=== PATIENT | female | born 1985 | race Caucasian/White ===

== ENCOUNTER 2024-03-07 12:08 | Emergency (ER) | payer OTHER, SELFPAY ==
--- NOTE | 2024-03-07 12:21 | ED_ITS ---
HPI - Overdose General Chief Complaint: Overdose Stated Complaint: OVERDOSE, 0.4 IV NARCAN GIVEN PER EMS Time Seen by Provider: 03/07/24 12:12 Source: patient, EMS and old records reviewed Mode of arrival: EMS Limitations: no limitations History of Present Illness HPI Narrative: 38 yo female admits to sniffing heroin and was found asleep in her car at this time patient is awake and alert to verbal and tactile stimuli but nods off she was given 1mg narcan with EMS. Denies SI. No signs of head trauma. MD complaint: accidental overdose Onset (ago): unknown Context: Accidental Overdose: wanted to get high Treatments Prior to Arrival: narcan (1mg intranasal) Related Data Home Medications ?Medication ?Instructions ?Recorded ?Confirmed Lactobacillus acidophilus 100 mg 100 mg PO BID 09/18/22 (1 billion cell) capsule alprazolam 2 mg tablet 2 mg PO BEDTIME 09/18/22 bupropion HCl 300 mg 24 hr tablet, 300 mg PO QAM 09/18/22 extended release buspirone 15 mg tablet 15 mg PO ONCE 09/18/22 clonidine HCl 0.2 mg tablet 0.2 mg PO TID 09/18/22 cyclobenzaprine 10 mg tablet 10 mg PO TID 09/18/22 escitalopram oxalate 10 mg tablet 10 mg PO DAILY 09/18/22 gabapentin 800 mg tablet 800 mg PO .Q4HRS 09/18/22 hydroxyzine HCl 25 mg tablet 25 mg PO Q6-8H 09/18/22 megestrol 20 mg tablet 20 mg PO DAILY 09/18/22 methadone 10 mg tablet 10 mg PO Q4H 09/18/22 metoprolol succinate 25 mg 25 mg PO DAILY 09/18/22 tablet,extended release 24 hr omeprazole 40 mg capsule,delayed 40 mg PO DAILY 09/18/22 release ondansetron HCl 4 mg tablet 4 mg PO Q8H 09/18/22 quetiapine 100 mg tablet 100 mg PO DAILY 09/18/22 sumatriptan succinate 50 mg tablet 50 mg PO Q2-4H PRN 09/18/22 Allergies Allergy/AdvReac Type Severity Reaction Status Date / Time acetaminophen [From TYLENOL] Allergy Unknown SWELLING Verified 03/07/24 12:36 (THROAT) Review of Systems Review of Systems: Constitutional : No Fever, No Chills ENT/Mouth : No Ear Pain, No Nasal Congestion, No sore throat Eyes: No Eye Pain, No Swelling, No Redness Cardiovascular : No Chest Pain, No SOB Respiratory : No Cough, No Sputum, No Dyspnea Gastrointestinal : No Nausea, No Vomiting, No Diarrhea, No Hematochezia, No Melena Genitourinary : No Dysuria, No Urinary Frequency, No Hematuria Musculoskeletal : No Myalgias Skin : No Skin Lesions, No rash Neuro : No Weakness, No Numbness, No Paresthesias, No Dizziness, No Headache Psych : no Anxiety, no Depression, no SI/HI All other systems reviewed and are negative [facility] Past Medical History Attestation statement: The following information was validated with the patient. Medical History Anxiety Family History Family History (System 11/27/23 @ 15:26 by Stefanie Chaney) Paternal Grandmother Breast cancer Maternal Grandmother Colon cancer Social History Social History Alcohol intake: current Alcohol intake frequency: holidays/special occasions only Patient Tobacco Use Status: Current everyday Tobacco user Tobacco use type: Cigarette Advance Directives: No Advance Directives Information Provided: No Physical Exam Vital Signs: Vital Signs: Last Vital Signs Temp 97.9 F 03/07/24 15:49 Pulse 80 03/07/24 15:49 Resp 14 03/07/24 15:49 BP 96/51 L 03/07/24 15:49 Pulse Ox 96 03/07/24 15:49 O2 Del Method Room Air 03/07/24 15:49 BMI result Body Mass Index 21.0 Appearance: Somnolent but wakes to verbal and tactile stimuli. Oriented X3. No acute distress. Eyes: Pupils equal, round and reactive to light. ENT: Pharynx normal. atraumatic Neck: Normal inspection. Neck supple. CVS: Normal heart rate and rhythm. Pulses normal. Respiratory: No respiratory distress. Breath sounds normal. Abdomen: Soft and nontender. Skin: Skin warm and dry. Normal skin color. Normal skin turgor. Extremities: No lower extremity edema. No calf ttp Neuro: Oriented X 3. No motor deficit. No sensory deficit. Course Course Course Narrative: patient has a ride here and is already asking to leave 105pm will continue to monitor does not want SUDE evaluation Reevaluation(s) Reevaluation #1: no need for repeat narcan stable for DC Medications Administered Discontinued Medications Generic Name Dose Route Start Last Admin Trade Name Lenora PRN Reason Stop Dose Admin Naloxone HCl 8 mg 03/07/24 12:32 03/07/24 15:50 Naloxone Hcl Nasal Take Home 4 Mg [place] NOSTRILALT 03/07/24 12:33 8 mg ONCE ONE Administration Medical Decision Making Medical Decision Making MDM Narrative: 38 yo female with PMH of anxiety admitted to sniffing a bag of heroin today then was found asleep in her car woke up with [facility] noted she was fine until en route became very sleepy they had to give her 1mg narcan she arrives still sleepy but wakes up to voice and tactile stimuli. No SI. Will monitor closely. Differential Diagnosis Differential Diagnoses: The differential diagnosis associated with the presentation includes drug overdose Admission/Observation Consideration of admission/observation: Escalation of care including admission/observation considered observe until more awake Lab Data MDM Lab Attestation statement: I reviewed the patient's lab results. Independent Historian Clinical information obtained from an independent historian. History obtained from or confirmed by: EMS Prescription Management I considered prescription management with: Other Discharge Plan Discharge Clinical Impression: Drug overdose Patient Disposition: Home, Self-Care Instructions: Adult Overdose (ED) Additional Instructions: carry narcan with you at all times Prescriptions: No Action sumatriptan succinate 50 mg tablet 50 mg PO Q2-4H PRN Rx Instructions: do not exceed 4 doses per 24 hrs methadone 10 mg tablet 10 mg PO Q4H cyclobenzaprine 10 mg tablet 10 mg PO TID metoprolol succinate 25 mg tablet extended release 24 hr 25 mg PO DAILY omeprazole 40 mg capsule,delayed release(DR/EC) 40 mg PO DAILY clonidine HCl 0.2 mg tablet 0.2 mg PO TID hydroxyzine HCl 25 mg tablet 25 mg PO Q6-8H gabapentin 800 mg tablet 800 mg PO .Q4HRS megestrol 20 mg tablet 20 mg PO DAILY ondansetron HCl 4 mg tablet 4 mg PO Q8H escitalopram oxalate 10 mg tablet 10 mg PO DAILY buspirone 15 mg tablet 15 mg PO ONCE bupropion HCl 300 mg tablet extended release 24 hr 300 mg PO QAM alprazolam 2 mg tablet 2 mg PO BEDTIME quetiapine 100 mg tablet 100 mg PO DAILY Lactobacillus acidophilus 100 mg (1 billion cell) capsule 100 mg PO BID Interventions: ED Discharge Assessment Last Done: 03/07/24 15:49 Print Language: Libyan
[2024-03-07 12:32] VITALS: BP 108/60; BP 108/67; PULSE 102; PULSE 77; RESP 12; TEMP 37.1; O2SAT 100; O2SAT 97; BMI 21.0
--- NOTE | 2024-03-07 12:37 | PC.NURSE ---
castro ROTHMAN from [facility] where she was found nodding out of consiousness. 1mg IV narcan administered. being changed over [facility] security and PCT - belongings will go to [facility]
--- OUTSIDE RECORDS SUMMARY | 2024-03-07 13:17 | XMS_ITS | Continuity of Care Document ---
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 have other health problems or are taking other medicines. ??? You may use fjaa-zco-fjnwzkb medicines, such as acetaminophen, ibuprofen, or naproxen, to control pain, unless another pain medicine was prescribed. Talk with your provider before taking any medicines if you have a chronic condition, such as diabetes, liver orkidney disease, stomach ulcers, or digestive bleeding, or are taking blood-thinner medicines. ??? Be careful if you are given prescription medicines, such as opioids, or medicine for muscle spasm. They can cause drowsiness, and affect your coordination, reflexes, and judgment. Don't drive or operate heavy machinery when taking these types of medicines. Only take pain medicine as prescribed by your provider. ?? Follow-up care Follow up with your healthcare provider as advised. You may need physical therapy or more tests??ifyour symptoms get worse. If you had X-rays, your provider may be checking for any broken bones, breaks, or fractures. Bruises and sprains can sometimes hurt as much as a fracture. These injuries can take time to heal fully. If your symptoms don???t get better or they get worse, talk with your provider. You may need a repeat X-ray or other tests. ?? Call 911 Call 911 if any of these occur: ??? Trouble breathing ??? Confused ??? Very drowsy or trouble waking up ??? Fainting or loss of consciousness ??? Rapid or very slow heart rate ??? Loss of bowel or bladder control ??? Weakness or numbness in 1 or both arms or legs ??? Numbness in the groin or genital area ?? When to get medical advice Call your healthcare provider right away if this occurs: ??? Pain gets worse or spreads to your arms or legs ?? Last Reviewed Date: 2022 ?? [employer]. All rights reserved. This information is not intended as a substitute for professional medical care. Always follow your healthcare professional's instructions. ?? * Vandana Whitley DO: PERFORM Event Display: Patient Education Leaflets Authored Date: [id number] Neck Sprain or Strain ?? [id number] Neck Sprain or Strain A sudden force that causes turning or bending of the neck can cause a sprain or strain. An example would be the force from a car accident. This can stretch or tear muscles called a strain. It can also stretch or tear ligaments called a sprain. Either of these can cause neck pain. Sometimes neck pain occurs after a simple awkward movement. In either case, muscle spasm is commonly present and contributes to the pain.?? Unless you had a forceful physical injury (for instance, a car accident or fall), X-rays are often not ordered for the initial evaluation of neck pain. If pain continues and doesn't respond to medical treatment, X-rays and other tests may be done later. Home care ??? You may feel more soreness and spasm the first few days after the injury. Rest until symptoms start to improve. ??? When lying down, use a comfortable pillow or a rolled towel that supports the head and keeps the spine in a neutral position. The position of the head should not be tilted forward or backward. ??? Apply an ice pack over the injured area for 15 to 20 minutes every 3 to 6 hours. Do this for the first 24 to 48 hours. To make an ice pack, put ice cubes in a plastic bag that seals at the top. Wrap the bag in a thin towel or cloth before using it. Don???t put ice or an ice pack directly on the skin. After 48 hours, apply heat (warm shower or warm bath) for 15 to 20 minutes several times a day. Or alternate ice and heat. ??? You may use itpz-mdy-ykfgumq pain medicine to control pain, unless another pain medicine was prescribed. Non- steroidal anti-inflammatory drugs (NSAIDs) like ibuprofen or naproxen may work better than acetaminophen. If you have chronic liver orkidney disease, ever had a stomach ulcer or gastrointestinal bleeding, or take blood thinners, talkwith your healthcare provider before using these medicines. ??? If a soft cervical collar was prescribed, only wear it for periods of increased pain. It should not be worn for more than 3 hours a day, or for longer than 1 to 2 weeks. ?? Follow-up care Follow up with your healthcare provider, or as directed. Physical therapy may be needed. Sometimes fractures don???t show up on the first X-ray. Bruises and sprains can sometimes hurt as much as a fracture. These injuries can take time to heal completely. If your symptoms don???t improveor they get worse, talk with your provider. You may need a repeat X-ray or other tests. If X-rays were taken, you will be told of any new findings that may affect your care. ?? Call 911 Call 911 if you have: ??? Neck swelling, difficulty or painful swallowing ??? Trouble breathing ???Chest pain ?? When to get medical advice Call your healthcare provider right away if any of these occur: ??? Pain gets worse or spreads intoyour arms or legs ??? Weakness or numbness in 1 or both arms or legs ?? Last Reviewed Date: 2021 ?? 5627-0115 [employer]. All rights reserved. This information is not intended as a substitute for professional medical care. Always follow your healthcare professional's instructions. ?? Patient Care team information Care Team Personnel Name: Jonnie Villarreal MD Position: [facility] Physician - Pediatrics Member Role: Lifetime Consulting Physician Address: Address: [address] [place] [address] [place] [address]- [place] Name: Kimberly Pope RN Position: [facility] RN Member Role: Primary Care Nurse Name: Dea Bill RN Position: [facility] RN Member Role: Primary Care Nurse Name: Cassidy Gonzalez Position: [facility] Outreach Member Role: Lifetime Consulting Physician Name: Judith Spaulding MD Position: Reference Physician Member Role: PCP Address: Address: [address] [place] [address] [place] [address]- Name: Kaylynn Muller RN Position: [facility] RN Member Role: Primary Care Nurse Name: Kiersten Mccain RN Position: [facility] AMB Nurse Member Role: Primary Care Nurse Name: Jory Hinton RN Position: [facility] RN Member Role: Primary Care Nurse Name: Cinthya Kaur RN Position: [facility] Bait Packer Member Role: Primary Care Nurse Care Team Related Persons Name: DAVINA TOMLINSON Address: [address] [place] [address] Name: LIZA SMITH Address: [address] [place] [address] Name: TOO SMITH Address: [address] [place] [address]
--- OUTSIDE RECORDS SUMMARY | 2024-03-07 13:17 | XMS_ITS | Continuity of Care Document ---
Author Organization [facility] ter Address [address] [place] [address]- Care Team Providers Care Industrial Retrofit Designer Name Role Phone Forest Perry MD, Judith Primary Care Phys ician Encounter [facility] [place] Date(s): 07/13/20 - 08/30/[address] [address] Attending Physician: Talya Ho MD Admitting Physician: Talya Ho MD Referring Physician: Kaila Casas MD Allergies, Adverse Reactions, Alerts Substance Reaction [...] G iven 1Admin Note: state 2Admin Note: [facility] 3Admin Note: [facility] 4Admin Note: [facility] 5Admin Note: [facility] Medications buPROPion 150 mg/24 hours (XL) [...] Date: 06/07/17 Stop Date: 08/12/20 Status: Ordered Metoprolol Succinate ER 25 mg [...] Date: 08/11/10 Status: Ordered Problem List Condition Effective Dates Status Health Status Inform ant MRSA bacteremia(Confirmed) Active Depression(Confirmed) Active Social History Social History Type Response Smoking Status 5-9 cigarettes (betw een 1/4 to 1/2 pack)/day in last 30 days entered on: 11/12/19 Sex
--- OUTSIDE RECORDS SUMMARY | 2024-03-07 13:17 | XMS_ITS | Continuity of Care Document ---
Author Organization [facility] ter Address [address] [place] [address]- Care Team Providers Care Brine Tank Tender Name Role Phone Forest Perry MD, Judith Primary Care Phys ician En[place] [facility] [place] Date(s): 07/13/20 - 08/26/[address] [address] Attending Physician: Talya Ho MD Admitting [...] G iven 1Admin Note: state 2Admin Note: [facility] 3Admin Note: [facility] 4Admin Note: [facility] 5Admin Note: [facility] Medications buPROPion 150 mg/24 hours (XL) [...]
--- OUTSIDE RECORDS SUMMARY | 2024-03-07 13:18 | XMS_ITS | Continuity of Care Document ---
Author Organization [facility] Infectious Disease Address [address] [place] [address]- Care Team Providers Care Bed Machine Operator Name Role Phone Forest Perry MD, Judith Primary Care Phys ician [place] [facility] [place] 09/30/20 [facility] Infectious Disease [address] [place] [address] Attending Physician: Margarito Fernandes MD Admitting Physician: Margarito Fernandes MD Referring Physician: Judith Spaulding MD Allergies, Adverse Reactions, Alerts Substance Reaction [...] G iven 1Admin Note: state 2Admin Note: [facility] 3Admin Note: [facility] 4Admin Note: [facility] 5Admin Note: [facility] Medications buPROPion 150 mg/24 hours (XL) oral [...]
--- OUTSIDE RECORDS SUMMARY | 2024-03-07 13:18 | XMS_ITS | Continuity of Care Document ---
Author Organization [facility] ter Address [address] [place] [address]- Care Team Providers Care Shearing Machine Operator Name Role Phone Forest Perry MD, Judith Primary Care Phys ician [place] [facility] [place] 07/13/20 - 08/31/[address] [address] Attending Physician: Talya Ho MD Admitting Physician: [...] G iven 1Admin Note: state 2Admin Note: [facility] 3Admin Note: [facility] 4Admin Note: [facility] 5Admin Note: [facility] Medications buPROPion 150 mg/24 hours [...]
--- OUTSIDE RECORDS SUMMARY | 2024-03-07 13:18 | XMS_ITS | Continuity of Care Document ---
Author Organization [facility] ter Address [address] [place] [address]- Care Team Providers Care Placing Judge Name Role Phone Forest Perry MD, Judith Primary Care Phys ician [place] [facility] [place](s): 07/13/20 - 08/27/[address] [address] Attending Physician: Talya Ho [...] G iven 1Admin Note: state 2Admin Note: [facility] 3Admin Note: [facility] 4Admin Note: [facility] 5Admin Note: [facility] Medications buPROPion 150 mg/24 hours (XL) oral [...]
--- OUTSIDE RECORDS SUMMARY | 2024-03-07 13:18 | XMS_ITS | Continuity of Care Document ---
Author Organization [facility] ter Address [address] [place] [address]- Care Team Providers Care Grass Farmer Name Role Phone Forest Perry MD, Judith Primary Care Phys ician Encounter [facility] [place] Date(s): 07/30/20 - 08/30/[address] [address] Attending Physician: Talya Ho [...] G iven 1Admin Note: state 2Admin Note: [facility] 3Admin Note: [facility] 4Admin Note: [facility] 5Admin Note: [facility] Medications buPROPion 150 mg/24 hours (XL) [...]
--- OUTSIDE RECORDS SUMMARY | 2024-03-07 13:18 | XMS_ITS | Continuity of Care Document ---
Author Organization [facility] Infectious Disease Address [address] [place] [address]- Care Team Providers Care Professor Of Food Biochemistry Name Role Phone Forest Perry MD, Judith Primary Care Phys ician [place] [facility] [place] 09/30/20 [facility] Infect[facility] [address] [place] [address] Attending Physician: Kye Cervantes Admitting Physician: Kye Cervantes Referring Physician: AdmtrKye Allergies, Adverse Reactions, Alerts Substance Reaction Severity [...] G iven 1Admin Note: state 2Admin Note: [facility] 3Admin Note: [facility] 4Admin Note: [facility] 5Admin Note: [facility] Medications buPROPion 150 mg/24 hours [...]
--- OUTSIDE RECORDS SUMMARY | 2024-03-07 13:18 | XMS_ITS | Continuity of Care Document ---
Author Organization [facility] ter Address [address] [place] [address]- Care Team Providers Care Freight Air Brake Fitter Name Role Phone Forest Perry MD, Judith Primary Care Phys ician En[place] [facility] [place] Date(s): 03/05/24 - 03/05/[address] [address]- Discharge Disposition: A-D/C AMA Attending Physician: Shellie Wooten MD Admitting Physician: Shellie Wooten MD Referring Physician: Not on Staff, Referring [...] G iven 1Admin Note: state 2Admin Note: [facility] 3Admin Note: [facility] 4Admin Note: [facility] 5Admin Note: [facility] Medications buPROPion 150 mg/24 hours (XL) oral [...] Active Depression Confirmed Active Underweight Confirmed Active Vital Signs Most recent to oldest [Reference Range]: 1 2 3 Height 163 cm (03/05/24 5:19 PM) 163 cm (03/05/24 5:19 PM) 163 cm (03/05/24 4:03 PM) Weight 47.7 kg (03/05/24 5:19 PM) 47.7 kg (03/05/24 5:19 PM) 47.7 kg (03/05/24 4:03 PM) Oxygen Saturation [94-100 %] 100 % (03/05/24:19 PM) 100 % (03/05/24 4:03 PM) 100 % (03/05/24 3:58 PM) Pulse Rate [55-90 bpm] 115 bpm *H* (03/05/24 5:19 PM) 105 bpm *H* (03/05/24 4:03 PM) 108 bpm *H* (03/05/24 3:58 PM) Body Mass Index [18.5-24.99 kg/m2] 17.95 kg/m2 *L* (03/05/24 5:19 PM) 17.95 kg/m2 *L* (03/05/24 4:03 PM) Blood Pressure [90-138/55-84 mm Hg] 134/95mm Hg (03/05/24 5:19 PM) 115/90mm Hg (03/05/24 4:03 PM) Respiratory Rate [16-30 br/min] 16 br/min (03/05/24 5:19 PM) 18 br/min (03/05/24 4:03 PM) Temperature [96.8-100.4 DegF] 98.8 DegF (03/05/24 5:19 PM) 97.7 DegF (03/05/24 4:03 PM) Mode of Delivery (Oxygen) Room air (03/05/24 5:19 PM) Room air (03/05/24 4:03 PM) Room air (03/05/24 3:58 PM) Blood pressure sites Arm, left (03/05/24 5:19 PM) Arm, left (03/05/24 4:03 PM) Temperature Route Oral (03/05/24 5:19 PM) Oral (03/05/24 4:03 PM) Dry Weight 47.7 kg (03/05/24 5:19 PM) 47.7 kg (03/05/24 5:19 PM) 47.7 kg (03/05/24 4:03 PM) Weight Obtained Via Patient/family state d (03/05/24 4:03 PM) Dry Weight Obtained Via Patient/family s tated (03/05/24 4:03 PM) Social History Social History Type Response Smoking Status 5-9 cigarettes (betw een 1/4 to 1/2 pack)/day in last 30 days entered on: 11/12/19 Sex Patient Care team information Care Team Personnel Name: Cherelle NIXON, Jonnie Mcclure Position: [facility] Physician - Pediatrics Member Role: Lifetime Consulting Physician Address: Address: [address] [place] [address] [place] [address]- Name: Kimberly Pope RN Position: [facility] RN Member Role: Primary Care Nurse Name: Dea Bill RN Position: [facility] RN Member Role: Primary Care Nurse Name: Cassidy Gonzalez Position: [facility] Outreach Member Role: Lifetime Consulting Physician Name: Judith Spaulding MD Position: Reference Physician Member Role: PCP Address: Address: [address] [place] [address] [place] [address]- Name: Kaylynn Muller RN Position: [facility] RN Member Role: Primary Care Nurse Name: Kiersten Mccain RN Position: [facility] AMB Nurse Member Role: Primary Care Nurse Name: Jory Hinton RN Position: [facility] RN Member Role: Primary Care Nurse Name: Cinthya Kaur RN Position: [facility] Home Management Supervisor Member Role: Primary Care Nurse Care Team Related Persons Name: BUSHRA DAVINA Address: [address] [place] [address] Name: LIZA SMITH Address: [address] [place] [address] Name: TOO SMITH Address: [address] [place] [address]
--- OUTSIDE RECORDS SUMMARY | 2024-03-07 13:18 | XMS_ITS | Continuity of Care Document ---
Author Organization [facility] ter Address [address] [place] [address]- Care Team Providers Care Information Engineer Name Role Phone Forest Perry MD, Judith Primary Care Phys ician [place] [facility] [place]/31/[address] [address] Attending Physician: Talya Ho MD Admitting Physician: [...] G iven 1Admin Note: state 2Admin Note: [facility] 3Admin Note: [facility] 4Admin Note: [facility] 5Admin Note: [facility] Medications buPROPion 150 mg/24 hours (XL) [...]
--- OUTSIDE RECORDS SUMMARY | 2024-03-07 13:18 | XMS_ITS | Continuity of Care Document ---
Author Organization [facility] ter Address [address] [place] [address]- Care Team Providers Care Blade Changer Name Role Phone Forest Perry MD, Judith Primary Care Phys ician Encounter [facility] [place] Date(s): 07/13/20 - 08/29/[address] [address] Attending Physician: Talya Ho [...] G iven 1Admin Note: state 2Admin Note: [facility] 3Admin Note: [facility] 4Admin Note: [facility] 5Admin Note: [facility] Medications buPROPion 150 mg/24 hours (XL) [...]
--- OUTSIDE RECORDS SUMMARY | 2024-03-07 13:18 | XMS_ITS | Continuity of Care Document ---
Author Organization [facility] ter Address [address] [place] [address]- Care Team Providers Care Gameroom Technician Name Role Phone Forest Perry MD, Judith Primary Care Phys [facility] Encounter [facility] Date(s): 07/06/20 - 07/13/[address] [address]- [facility] Discharge Disposition: A-D/C Home Attending Physician: Talya Ho MD Admitting Physician: Ale Venegas MD Referring Physician: Not on Staff, Referring [...] G iven 1Admin Note: state 2Admin Note: [facility] 3Admin Note: [facility] 4Admin Note: [facility] 5Admin Note: [facility] Medications buPROPion 150 mg/24 hours (XL) [...] 21:02:00 EDT Start Date: 07/07/20 Status: Ordered DAPTOmycin 500 mg intravenous injection = 400 mg, IV Push, Every 24 hours, for 37 days, next dose on 07/14, # 37 each, 0 Refills, Acute 08/19/20 15:39:03 EDT, 07/13/20 13:58:00 EDT Start Date: 07/13/20 Stop Date: 08/19/20 Status: Ordered Gabapentin = 800 mg, By Mouth, 3 times a day, 0 Refills, Maintenance, 06/07/17 15:07:01 EDT Start Date: 06/07/17 Stop Date: 08/12/20 Status: Ordered lidocaine 0.5% topical gel 1 application, Topically, 3 times a day, for 10 days, # 240 Gm, 0 Refills, Acute 07/23/20 15:47:00 EDT, 07/13/20 15:47:00 EDT, Gel, [facility] [place], [place] - [phone], 1 application Topically 3 times a day,x10 days, 162, cm, 07/13/20 14:19... Start Date: 07/13/20 Stop Date: 07/23/20 Status: Ordered Omeprazole = 20 mg, By Mouth, Daily, 0 Refills, Maintenance, 07/05/20 17:39:00 EDT Start Date: 07/05/20 Status: Ordered Xanax 2 mg oral tablet 1 tablet, By Mouth, 3 times a day, PRN for anxiety, 0 Refills, Maintenance, 08/11/10 23:25:08 EDT, Tablet Start Date: 08/11/10 Status: Ordered Problem List Condition Effective Dates Status Health Status Inform ant MRSA bacteremia(Confirmed) Active Depression(Confirmed) Active Results Orders for Microbiology Reports Name Date Blood Culture 07/10/20 Blood Culture #2 07/10/20 Blood Culture 07/09/20 Blood Culture #2 07/09/20 Blood Culture 07/08/20 Blood Culture #2 07/08/20 Blood Culture 07/07/20 Blood Culture #2 07/07/20 Microbiology Reports TEST:Blood Culture STATUS:Unauthenticated BODY SITE: SOURCE:Blood COLLECTED DATE/TIME:07/10/20 12:17 PM Blood Culture SPECIMEN DESCRIPTION : BLOOD RA SPECIAL REQUESTS : NONE CULTURE : NO GROWTH 3 DAYS REPORT STATUS : PRELIMINARY REPORT TEST:Blood Culture, Second Order STATUS:Unauthenticated BODY SITE: SOURCE:Blood COLLECTED DATE/TIME:07/10/20 12:17 PM Blood Culture, Second Order SPECIMEN DESCRIPTION : BLOOD NOSITE SPECIAL REQUESTS : NONE CULTURE : NO GROWTH 3 DAYS REPORT STATUS : PRELIMINARY REPORT TEST:Blood Culture STATUS:Unauthenticated BODY SITE: SOURCE:Blood COLLECTED DATE/TIME:07/09/20 3:03 PM Blood Culture SPECIMEN DESCRIPTION : BLOOD R A SPECIAL REQUESTS : NONE CULTURE : NO GROWTH 4 DAYS REPORT STATUS : PRELIMINARY REPORT TEST:Blood Culture, Second Order STATUS:Unauthenticated BODY SITE: SOURCE:Blood COLLECTED DATE/TIME:07/09/20 3:03 PM Blood Culture, Second Order SPECIMEN DESCRIPTION : BLOOD L A SPECIAL REQUESTS : NONE CULTURE : NO GROWTH 4 DAYS REPORT STATUS : PRELIMINARY REPORT TEST:Blood Culture STATUS:Auth (Verified) BODY SITE: SOURCE:Blood COLLECTED DATE/TIME:07/08/20 12:04 PM Blood Culture SPECIMEN DESCRIPTION : BLOOD L SPECIAL REQUESTS : CRITICAL VALUE CALLED AND VERIFIED BY READBACK FOR: POSITIVE BLOOD CULTURE W/GRAM POSITIVE COCCI [place] [id number], S64, 07/09/20 AT 0945 BY TECH 701. CULTURE : STAPHYLOCOCCUS AUREUS, METHICILLIN RESISTANT. METHICILLIN RESISTANT STAPH AUREUS SHOULD BE CONSIDERED CLINICALLY RESISTANT TO ALL BETA-LACTAMS. Result reported to [facility]. REPORT STATUS : FINAL 07/11/2020 ORGANISM STAPHYLOCOCCUS AUREUS, METHICILLIN RESISTANT. ORGANISM METHICILLIN RESISTANT STAPH AUREUS SHOULD BE ORGANISM CONSIDERED CLINICALLY RESISTANT TO ALL ORGANISM BETA-LACTAMS. Result reported to [facility]. METHOD MIN. INHIB. CONC. (MCG/ML) CIPROFLOXACIN SUSCEPTIBLE CLINDAMYCIN SUSCEPTIBLE ERYTHROMYCIN RESISTANT INDUCIBLE CLINDAMYCI NEGATIVE LEVOFLOXACIN SUSCEPTIBLE LINEZOLID SUSCEPTIBLE OXACILLIN RESISTANT RIFAMPIN SUSCEPTIBLE RIFAMPIN RIFAMPIN SHOULD NOT BE USED ALONE FOR ANTIMICROBIAL RIFAMPIN THERAPY. TETRACYCLINE SUSCEPTIBLE TRIMETH/SULFAMETHOX SUSCEPTIBLE VANCOMYCIN SUSCEPTIBLE VANCOMYCIN VANCO TYESHA EQ 1 MCG/ML TEST:Blood Culture, Second Order STATUS:Auth (Verified) BODY SITE: SOURCE:Blood COLLECTED DATE/TIME:07/08/20 12:04 PM Blood Culture, Second Order SPECIMEN DESCRIPTION : BLOOD R SPECIAL REQUESTS : NONE CULTURE : NO GROWTH 5 DAYS. REPORT STATUS : FINAL 07/13/2020 TEST:Blood Culture STATUS:Auth (Verified) BODY SITE: SOURCE:Blood COLLECTED DATE/TIME:07/07/20 10:39 AM Blood Culture SPECIMEN DESCRIPTION : BLOOD R SPECIAL REQUESTS : CRITICAL VALUE CALLED AND VERIFIED BY READBACK FOR: GRAM POSITIVE COCCI TO [id number], S64, 07/08/2020 0346, BY TECH [id number] CULTURE : STAPHYLOCOCCUS AUREUS, METHICILLIN RESISTANT. METHICILLIN RESISTANT STAPH AUREUS SHOULD BE CONSIDERED CLINICALLY RESISTANT TO ALL BETA-LACTAMS. Result reported to [facility]. REPORT STATUS : FINAL 07/10/2020 ORGANISM STAPHYLOCOCCUS AUREUS, METHICILLIN RESISTANT. ORGANISM METHICILLIN RESISTANT STAPH AUREUS SHOULD BE ORGANISM CONSIDERED CLINICALLY RESISTANT TO ALL ORGANISM BETA-LACTAMS. Result reported to [facility]. METHOD MIN. INHIB. CONC. (MCG/ML) CIPROFLOXACIN SUSCEPTIBLE CLINDAMYCIN SUSCEPTIBLE DAPTOMYCIN SUSCEPTIBLE DAPTOMYCIN DAPTO TYESHA EQ <0.5 MCG/ML ERYTHROMYCIN RESISTANT INDUCIBLE CLINDAMYCI NEGATIVE LEVOFLOXACIN SUSCEPTIBLE LINEZOLID SUSCEPTIBLE OXACILLIN RESISTANT RIFAMPIN SUSCEPTIBLE RIFAMPIN RIFAMPIN SHOULD NOT BE USED ALONE FOR ANTIMICROBIAL RIFAMPIN THERAPY. TETRACYCLINE SUSCEPTIBLE TRIMETH/SULFAMETHOX SUSCEPTIBLE VANCOMYCIN SUSCEPTIBLE VANCOMYCIN VANCO TYESHA EQ 1 MCG/ML TEST:Blood Culture, Second Order STATUS:Auth (Verified) BODY SITE: SOURCE:Blood COLLECTED DATE/TIME:07/07/20 10:39 AM Blood Culture, Second Order SPECIMEN DESCRIPTION : BLOOD NO SITE SPECIAL REQUESTS : CRITICAL VALUE CALLED AND VERIFIED BY READBACK FOR: GRAM POSITIVE COCCI CALLED TO [id number], S64, ON 07/08/2020 AT 03:09 CULTURE : STAPHYLOCOCCUS AUREUS, METHICILLIN RESISTANT. METHICILLIN RESISTANT STAPH AUREUS SHOULD BE CONSIDERED CLINICALLY RESISTANT TO ALL BETA-LACTAMS. Result reported to [facility]. S. aureus was identified by multi-plex PCR. Mec A detected. Due to the presence of the mecA gene, this isolate should be considered resistant to methicillin (MRSA). FOR SUSCEPTIBILITY RESULT REFER TO BLOOD CULTURE REPORT STATUS : FINAL 07/10/2020 Vital Signs Most recent to oldest [Reference Range]: 1 2 3 4 Height 162 cm (07/13/20 2:19 PM) 162 cm (07/13/20 5:50 AM) 162 cm (07/12/20 7:53 PM) Weight 47.8 kg (07/09/20 11:17 AM) 47.8 kg (07/06/20 10:39 PM) 47.8 kg (07/06/20 7:31 PM) Oxygen Saturation [94-100 %] 99 % (07/13/20 2:19 PM) 100 % (07/13/20 5:50 AM) 100 % (07/12/20 7:53 PM) Pulse Rate [55-90 bpm] 100 bpm *H* (07/13/20 2:19 PM) 101 bpm *H* (07/13/20 5:50 AM) 106 bpm *H* (07/12/20 7:53 PM) Body Mass Index [18.5-24.99] 18.21 *L* (07/06/20 10:39 PM) 18.21 *L* (07/06/20 7:31 PM) Blood Pressure [90-138/55-84 mm Hg] 115/70mm Hg (07/13/20 2:19 PM) 137/77mm Hg (07/13/20 5:50 AM) 130/76mm Hg (07/12/20 7:53 PM) Respiratory Rate [16-30 br/min] 16 br/min (07/13/20 2:19 PM) 16 br/min (07/13/20 9:09 AM) 16 br/min (07/13/20 9:09 AM) 16 br/min (07/13/20 9:09 AM) Temperature [96.8-100.4 DegF] 98.7 DegF (07/13/20 2:19 PM) 98.1 DegF (07/13/20 5:50 AM) 98.1 DegF (07/12/20 7:53 PM) Liters per Minute 2 L/min (07/09/20 11:43 AM) Mode of Delivery (Oxygen) Room air (07/13/20 2:19 PM) Room air (07/13/20 5:50 AM) Room air (07/12/20 7:53 PM) Blood pressure sites Arm, right (07/13/20 2:19 PM) Arm, left (07/13/20 5:50 AM) Arm, right (07/12/20 1:00 PM) Temperature Route Oral (07/13/20 2:19 PM) Oral (07/13/20 5:50 AM) Oral (07/12/20 7:53 PM) Dry Weight 47.8 kg (07/06/20 10:39 PM) Weight Obtained Via Bed scale (07/06/20 7:31 PM) Social History Social History Type Response Smoking Status 5-9 cigarettes (betw een 1/4 to 1/2 pack)/day in last 30 days entered on: 11/12/19 Sex
--- OUTSIDE RECORDS SUMMARY | 2024-03-07 13:18 | XMS_ITS | Continuity of Care Document ---
Author Organization [facility] ter Address [address] [place] [address]- Care Team Providers Care Javascript Ui Developer Name Role Phone Forest Perry MD, Judith Primary Care Phys [facility] Encounter [facility] Date(s): 07/12/20 - 08/11/[address] [address]- [facility] Attending Physician: Not on Staff, Attending MD Admitting Physician: Not on Staff, Admitting MD Referring Physician: Not on Staff, Referring [...] G iven 1Admin Note: state 2Admin Note: [facility] 3Admin Note: [facility] 4Admin Note: [facility] 5Admin Note: [facility] Medications buPROPion 150 mg/24 hours (XL) [...] 13:11:00 EDT Start Date: 08/12/20 Status: Ordered DAPTOmycin 500 mg intravenous injection [...]
--- OUTSIDE RECORDS SUMMARY | 2024-03-07 13:18 | XMS_ITS | Continuity of Care Document ---
Author Organization [facility] Address [address] [place] [address]- Care Team Providers Care Billing Control Clerk Name Role Phone Forest Perry MD, Judith Primary Care Phys ician Encounter [facility] Date(s): 07/29/20 - 08/28/20 [facility] [address] [place] [id number] Allergies, Adverse Reactions, Alerts Substance Reaction Severity [...] G iven 1Admin Note: state 2Admin Note: [facility] 3Admin Note: [facility] 4Admin Note: [facility] 5Admin Note: [facility] Medications buPROPion 150 mg/24 hours (XL) oral [...]
--- OUTSIDE RECORDS SUMMARY | 2024-03-07 13:18 | XMS_ITS | Continuity of Care Document ---
Author Organization [facility] ter Address [address] [place] [address]- Care Team Providers Care Airplane Refueler Name Role Phone Forest Perry MD, Judith Primary Care Phys ician Encounter [facility] Date(s): 03/28/22 - 03/29/[address] [address]- Discharge Disposition: A-D/C Walkout Attending Physician: Ger Knott DO Admitting Physician: Ger Knott DO Referring Physician: Not on Staff, Referring MD [...] G iven 1Admin Note: state 2Admin Note: [facility] 3Admin Note: [facility] 4Admin Note: [facility] 5Admin Note: [facility] Medications buPROPion 150 mg/24 hours (XL) [...] ant MRSA bacteremia(Confirmed) Active Depression(Confirmed) Active Results Radiology Reports * Exam Date Time Procedure Performing Provider Status 03/28/22 10:22 PM Chest 2 Views Frontal and Lat Saud Zhong; Auth (Verified) Notes: (Chest 2 Views Frontal and Lat) Reason For Exam: Pleuritic Pain RESULT: Chest 2 Views Frontal and Lat Chest 2 Views Frontal and Lat REASON: Pleuritic Pain; Clinical Question(s): Pneumonia Hx of Present Illness: onset 9am chest pain and sob, hurts to take deep inspiration, no fevers, n vd, LMP 4 20, last injected 3 years afo, no etoh; COMPARISON: Chest x-ray and chest CT 07/05/2020. FINDINGS: LINES AND TUBES: None. LUNGS AND PLEURA: Clear lungs. Normal pulmonary vascularity. Increased attenuation in the hilar regions likely due tooverlying tissue. No pleural effusion. No pneumothorax. HEART, MEDIASTINUM AND KERON: Heart is normal in size. Normal upper mediastinal and hilar contour. BONES AND SOFT TISSUES: No acute abnormality. IMPRESSION: No acute abnormality. I have personally reviewed the images and I agree with this report. WSN: [id number] Ordering Physician: Ger Knott Dictated By: Abiodun Hearn DO Dictated Date/Time: 03/28/22 10:41 p Reviewed By: Michael Rodriguez MD Signed By: Michael Rodriguez MD Signed Date/Time: 03/28/22 10:46 pm Transcribed By: ADINA Transcribed Date/Time: 03/28/22 10:35 pm Vital Signs Most recent to oldest [Reference Range]: 1 2 3 Weight 62 kg (03/28/22 8:18 PM) Oxygen Saturation [94-100 %] 100 % (03/28/22 11:50 PM) 100 % (03/28/22 11:19 PM) 100 % (03/28/22 8:18 PM) Pulse Rate [55-90 bpm] 93 bpm *H* (03/28/22 11:50 PM) 98 bpm *H* (03/28/22 11:19 PM) 121 bpm *H* (03/28/22 8:18 PM) Blood Pressure [90-138/55-84 mm Hg] 131/91mm Hg (03/28/22 11:50 PM) 120/99mm Hg (03/28/22 11:19 PM) 154/95mm Hg *H* (03/28/22 8:18 PM) Respiratory Rate [16-30 br/min] 21 br/min (03/28/22 11:50 PM) 20 br/min (03/28/22 11:19 PM) 21 br/min (03/28/22 8:18 PM) Temperature [96.8-100.4 DegF] 98.2 DegF (03/28/22 11:19 PM) 98.7 DegF (03/28/22 8:18 PM) Mode of Delivery (Oxygen) Room air (03/28/22 11:50 PM) Room air (03/28/22 11:19 PM) Room air (03/28/22 8:18 PM) Blood pressure sites Arm, left (03/28/22 11:50 PM) Arm, right (03/28/22 11:19 PM) Temperature Route Oral (03/28/22 11:19 PM) Oral (03/28/22 8:18 PM) Weight Obtained Via Standing scale (03/28/22 8:18 PM) Social History Social History Type Response Smoking Status 5-9 cigarettes (betw een 1/4 to 1/2 pack)/day in last 30 days entered on: 11/12/19 Sex
--- OUTSIDE RECORDS SUMMARY | 2024-03-07 13:18 | XMS_ITS | Continuity of Care Document ---
Author Organization [facility] ter Address [address] [place] [address]- Care Team Providers Care Retail General Manager Name Role Phone Forest Perry MD, Judith Primary Care Phys ician Encounter [facility] Date(s): 07/30/20 - 08/29/[address] [address] Attending Physician: Talya oH MD Admitting Physician: Talya Ho MD Referring [...] G iven 1Admin Note: state 2Admin Note: [facility] 3Admin Note: [facility] 4Admin Note: [facility] 5Admin Note: [facility] Medications buPROPion 150 mg/24 hours (XL) [...]
[2024-03-07 14:00] VITALS: PULSE 73; RESP 18; O2SAT 100
--- NOTE | 2024-03-07 14:20 | PC.NURSE ---
pt sleeping, ekg monitor tech intact, vss, will continue to monitor
[2024-03-07 15:49] VITALS: BP 96/51; PULSE 80; RESP 14; TEMP 36.6; O2SAT 96
[2024-03-07] MEDS: Naloxone HCl Nasal TAKE HOME 4 MG SPRAY 8 MG NOSTRILALT (15:50)
== END 2024-03-07 16:04 | disposition home or self-care (01) ==
PROVIDERS: Emergency Provider Emergency Medicine; PCP Internal Medicine
DX: T50.901A Poisoning by unspecified drugs, medicaments and biological substances, accidental (unintentional), initial encounter (principal); Y92.9 Unspecified place or not applicable
CPT/HCPCS: 99283